=== PATIENT | female | born 1960 | race Caucasian/White ===

== ENCOUNTER 2020-06-28 20:16 | Emergency (ER) | payer SELFPAY ==
[~2020-06-28] VITALS: Ht 157.5 cm; Wt 62.1 kg
[2020-06-28 21:04] LABS: CLARITY,URINE CLOUDY (CLEAR); COLOR,URINE YELLOW (YELLOW)
[2020-06-28 21:05] LABS: KETONES,URINE NEGATIVE (NEGATIVE); LEUKOCYTE ESTERASE ,URINE TRACE (NEGATIVE); NITRITE,URINE NEGATIVE (NEGATIVE); PROTEIN,URINE DIPSTICK TRACE (NEGATIVE); URINE UROBILINOGEN 0.2 mg/dL (0.2 - 1)
[2020-06-28 21:17] LABS: BACTERIA,URINE MANY /HPF; EPITHELIAL CELLS,URINE MODERATE /LPF
[2020-06-28] MEDS ORDERED: KEFLEX500 MG PO (21:35)
[2020-06-28] MEDS ORDERED: IBUPROFEN 800MG/ 200ML 800 MG in SODIUM CHLORIDE 0.9% 250ML 250 ML IV STA (21:39)
[2020-06-28] MEDS ORDERED: IBUPROFEN 600 MG TAB PO STA (21:47)
[2020-06-28] MEDS ORDERED: IBUPROFEN 400 MG TAB ONE (21:50)
[2020-06-28] MEDS ORDERED: IBUPROFEN 400 MG TAB PO STA (21:51)
[2020-06-28] MEDS ORDERED: TYLENOL # 31 EA PO (22:51)
[2020-06-28] MEDS ORDERED: TRAMADOL HCL 50 MG TAB PO ONE (23:00)
[2020-06-28] MEDS ORDERED: TRAMADOL HCL 50 MG TAB ONE (23:04)
== END 2020-06-28 23:21 | disposition home or self-care (01) ==
LOC: ER 20:22
DX: N39.0 Urinary tract infection, site not specified (principal); R30.0 Dysuria; R10.30 Lower abdominal pain, unspecified; I10 Essential (primary) hypertension; E78.5 Hyperlipidemia, unspecified; F31.9 Bipolar disorder, unspecified
CPT/HCPCS: 81001; 99282